=== PATIENT | female | born 1990 | race Caucasian/White ===

== ENCOUNTER 2018-02-10 20:48 | Emergency (ER) | payer SELFPAY ==
[~2018-02-10] VITALS: Ht 177.8 cm; Wt 63.5 kg
[2018-02-10 21:52] VITALS: BP 118/68
== END 2018-02-10 22:27 | disposition home or self-care (01) ==
LOC: ER 20:49
DX: H60.8X2 Other otitis externa, left ear (principal); H66.92 Otitis media, unspecified, left ear
CPT/HCPCS: A4606; Z7610

== ENCOUNTER 2021-09-21 18:44 | Emergency (ER) | payer MEDICAID ==
[~2021-09-21] VITALS: Ht 165.1 cm; Wt 74.8 kg
[2021-09-21 18:51] VITALS: BP 116/59
--- NOTE | 2021-09-21 22:32 | NUR ---
Patient discharged to home in stable condition. Written and verbal after care instructions given. Patient verbalizes understanding of instruction.
== END 2021-09-21 22:33 | disposition home or self-care (01) ==
LOC: ER 18:51
DX: J06.9 Acute upper respiratory infection, unspecified (principal); Z20.822 Contact with and (suspected) exposure to COVID-19
CPT/HCPCS: 71045; 87426; 87804; 99284; C9803

== ENCOUNTER 2022-03-19 19:36 | Emergency (ER) | payer MEDICAID ==
[~2022-03-19] VITALS: Ht 167.6 cm; Wt 72.6 kg
--- NOTE | 2022-03-19 19:57 | NUR ---
BIBHUSBAND C/O HEADACHE, SOREHROAT BACK PAIN & FATIGUE SINCE MARCH 15. NOT COVID VACCINATED. PT AWAKE AND ALERT BREATHING EVEN AND UNLABORED. PLACED ON MONITOR AND O2 SAT AL V/S WNL. PLACED ON ISOLATION PRECAUTION.
--- NOTE | 2022-03-19 20:27 | NUR ---
covid swab collected and sent to lab
[2022-03-19] MEDS ORDERED: AZIT250T PO (21:33)
[2022-03-19 21:45] VITALS: BP 152/61
--- NOTE | 2022-03-19 21:45 | NUR ---
Patient discharged to home in stable condition. Written and verbal after care instructions given. Patient verbalizes understanding of instruction.
== END 2022-03-19 21:46 | disposition home or self-care (01) ==
LOC: ER 19:40
DX: J20.9 Acute bronchitis, unspecified (principal); R51.9 Headache, unspecified; Z20.822 Contact with and (suspected) exposure to COVID-19
CPT/HCPCS: 87426; 87804; 99283; C9803